=== PATIENT | male | born 1930 | race Caucasian/White ===

== ENCOUNTER 2017-04-21 03:00 | Emergency (ER) | payer MEDICARE ==
[2017-04-21 03:19] VITALS: RESP 18
--- NOTE | 2017-04-21 04:14 | CT ---
EXAM: CT Abdomen and Pelvis Without Intravenous Contrast CLINICAL HISTORY: Reason: scrotal swelling TECHNIQUE: Axial computed tomography images of the abdomen and pelvis without intravenous contrast. DLP is 790.60 mGy-cm. This CT exam was performed using one or more of the following dose reduction techniques: automated exposure control, adjustment of the mA and/or kV according to patient size, and/or use of iterative reconstruction technique. COMPARISON: No relevant prior studies available. FINDINGS: Liver, spleen, pancreas, and both adrenal glands are normal. Gallbladder contains a small amount of dense material which may represent gravel-like gallstones. Both kidneys appear normal without evidence of hydronephrosis or calculus. The urinary bladder is normal. There is a large left inguinal hernia extending to the left scrotum. The left inguinal hernia sac contains several loops of small bowel and a segment of the sigmoid colon. No evidence of bowel strangulation. IMPRESSION: 1. Large left inguinal hernia extending to the left scrotum which contains multiple loops of small bowel and a segment of the sigmoid colon. No evidence of bowel strangulation. 2. Cholelithiasis.
--- NOTE | 2017-04-21 04:37 | ED ---
General Adult HPI - General Chief complaint: Recheck/Abnormal Lab/Rx Stated complaint: Fall/Testicular Swelling Time Seen by Provider: 04/21/17 03:05 Source: patient, family, EMS Mode of arrival: EMS Limitations: no limitations - History of Present Illness Initial comments: This patient is an 86-year-old man brought to be evaluated by EMS. EMS had been called to the scene where patient had fallen and was not able to get back up. They found the patient lying on the ground stating that he had tripped on the curb and fallen. Patient was denying significant injury but was very weak and not able to stand without support. A did get him up he was able to go into his home. When he was inside the patient's requested that they try to help get him undressed so he could go to bed and it was observed that the patient's scrotum had marked amount of swelling. They bring the patient to have the scrotal swelling evaluated. The patient states that this is been going on probably for about a year. He is denying pain. He denies recent change in bowel movements or urination. The patient states that without the prompting from EMS he would not have come here to be evaluated for this tonight. Onset/Timin -: year(s) Location: genitals Radiation: non-radiation Quality: other (No pain) Consistency: constant Improves with: none Worsens with: none Associated Symptoms: denies other symptoms Treatments Prior to Arrival: none - Related Data Allergies Allergy/AdvReac Type Severity Reaction Status Date / Time No Known Allergies Allergy Verified 04/21/17 03:40 Review of Systems ROS Statement: Those systems with pertinent positive or pertinent negative responses have been documented in the HPI. ROS Other: All systems not noted in ROS Statement are negative. Constitutional: Denies: fever, chills Respiratory: Denies: cough, dyspnea Cardiovascular: Denies: chest pain, palpitations, syncope Gastrointestinal: Denies: abdominal pain, vomiting, diarrhea, constipation Genitourinary: Reports: as per HPI, other (Scrotal swelling). Denies: dysuria, hematuria Musculoskeletal: Denies: back pain Skin: Denies: rash Neurological: Denies: headache, weakness, numbness Past Medical History Additional Past Medical History / Comment(s): peptic ulcer History of Any Multi-Drug Resistant Organisms: None Reported Additional Past Surgical History / Comment(s): shoulder rotator cuff surgery Past Psychological History: No Psychological Hx Reported Smoking Status: Never smoker Past Alcohol Use History: None Reported Past Drug Use History: None Reported General Exam Limitations: no limitations General appearance: alert, in no apparent distress Head exam: Present: atraumatic, normocephalic Eye exam: Present: normal appearance. Absent: scleral icterus, conjunctival injection Neck exam: Present: normal inspection Respiratory exam: Present: normal lung sounds bilaterally. Absent: respiratory distress, wheezes, rales, rhonchi, stridor Cardiovascular Exam: Present: regular rate, normal rhythm, normal heart sounds. Absent: systolic murmur, diastolic murmur, rubs, gallop GI/Abdominal exam: Present: soft, normal bowel sounds, hernia (Patient has large inguinal hernia into the scrotum without tenderness.). Absent: distended , tenderness, guarding, rebound, rigid exam: Present: scrotal swelling Extremities exam: Present: normal inspection, normal capillary refill. Absent: pedal edema, calf tenderness Back exam: Absent: CVA tenderness (R), CVA tenderness (L) Neurological exam: Present: alert. Absent: motor sensory deficit Skin exam: Present: warm, dry, intact, normal color. Absent: rash Course Vital Signs 04/21/17 04/21/17 04/21/17 03:05 04:43 05:27 Temperature 97.2 F L 98.8 F Pulse Rate 130 H 122 H 83 Respiratory 18 18 18 Rate Blood Pressure 122/63 133/74 149/79 O2 Sat by Pulse 99 98 98 Oximetry Medical Decision Making - Medical Decision Making Patient is an 86-year-old man with a large inguinal hernia without tenderness or evidence of obstruction. Given that the patient is not having symptoms related to this he is stable for discharge area he is given the follow-up information for surgery but at this point states that he is not interested in having a surgery. Discussed signs and symptoms requiring immediate emergent reevaluation and also appropriate follow-up information. Disposition Clinical Impression: Hernia, Fall Disposition: HOME SELF-CARE Condition: Fair Instructions: Fall Prevention for Older Adults (ED), Inguinal Hernia (ED) Referrals: None,Stated [Primary Care Provider] - 1-2 days Torrey Jc DO [Doctor of Osteopathic Medicine] - 1-2 days
[2017-04-21 05:28] VITALS: BP 149/79; PULSE 83; TEMP 98.8
--- NOTE | 2017-04-22 06:02 | CDI ---
Documentation Clarification OP Dear Israel ARAYA MD Please do addendum to ED report for HPI , Physical exam and MDM. Thank you, Kami Uriarte Nursing Secretary If you have any question, Please contact coding compliance specialist at [phone] [facility]
== END 2017-04-21 05:27 | disposition home or self-care (01) ==
LOC: EC 03:00
DX: K40.90 Unilateral inguinal hernia, without obstruction or gangrene, not specified as recurrent (principal); W01.0XXA Fall on same level from slipping, tripping and stumbling without subsequent striking against object, initial encounter; Y92.009 Unspecified place in unspecified non-institutional (private) residence as the place of occurrence of the external cause
CPT/HCPCS: 74176; 99284

== ENCOUNTER 2018-08-08 21:43 | Inpatient (IN) | payer MEDICARE ==
[2018-08-08] MEDS ORDERED: SODIUM CHLORIDE 0.9% 1,000 ML IV ONE (22:15)
--- NOTE | 2018-08-08 22:24 | ED ---
General Adult HPI - General Chief complaint: Altered Mental Status Stated complaint: Altered Mental Status Time Seen by Provider: 08/08/18 21:45 Source: patient, family, EMS, RN notes reviewed Mode of arrival: EMS Limitations: altered mental status - History of Present Illness Initial comments: Chief complaint and history of present illness this is an 87-year-old male presents emergency room with a fever and change in mental status. He was with his ex- spends days with him today and she said he didn't eat which is not like him. He also had difficulty standing. The patient smells of urine. - Related Data Home Medications Medication Instructions Recorded Confirmed Acetaminophen Tab [Tylenol Tab] 650 mg PO Q6H PRN 08/08/18 08/08/18 Multivit-Min/FA/Lycopen/Lutein 1 tab PO DAILY 08/08/18 08/08/18 [Centrum Silver Tablet] Allergies Allergy/AdvReac Type Severity Reaction Status Date / Time No Known Allergies Allergy Verified 08/08/18 22:27 Review of Systems ROS Statement: Those systems with pertinent positive or pertinent negative responses have been documented in the HPI. Review of systems. The patient's heart appearing but he denies headache chest pain shortness breath GI/ or neuro deficits. While in bed he is able to move his extremities he does have shoulder problems after chronic is hard to move his left shoulder especially. His ex- who knows him well states that he just not himself. And he was unable to stand today though he did walk in the house earlier. She states she never fell. Past medical processing significant for duodenal ulcer, patient's had left rotator cuff surgery. Family history unknown. ALLERGIES none. ROS Other: All systems not noted in ROS Statement are negative. Past Medical History Additional Past Medical History / Comment(s): peptic ulcer History of Any Multi-Drug Resistant Organisms: None Reported Additional Past Surgical History / Comment(s): shoulder rotator cuff surgery Past Psychological History: No Psychological Hx Reported Smoking Status: Never smoker Past Alcohol Use History: None Reported Past Drug Use History: None Reported General Exam - General Exam Comments Initial Comments: General: The patient is awake and very hard of hearing. Assuming his a type posi tion which is ex- states is unusual for him. He is not complaining of any pain when asked specifically. She states she is not acting himself because he did not eat today. He stumbled and nearly fell. Vital signs show temperature 101.2 pulse 94 respiratory rate 20 pulse ox 90% room air blood pressure 147/77. Patient is very unkempt. Appears to have urinated on himself. Eye: Pupils are equal, round and reactive to light, extra-ocular movements are intact; there is normal conjunctiva bilaterally. No signs of icterus. Ears, nose, mouth and throat: Dry mucous membranes. Neck: The neck is supple, denies neck tenderness Cardiovascular: There is a regular rate and rhythm. No murmur, rub or gallop is appreciated. Respiratory: Decreased breath sounds on the left side. No crepitus or rales appreciated Gastrointestinal: Soft, non-distended, non-tender abdomen without masses or organomegaly noted. Evident from the patient's clothing that is lost a lot of weight. Current weight is reported to be 120 pounds Back: Denying back pain no bruises noted Musculoskeletal: Patient is curled up not complaining of pain. Reportedly had difficulty ambulating and standing per ex-.. Neurological: Patient moves upper or lower extremities but ex- states he wasn't able to stand on his own this afternoon Skin: Skin is warm and dry and no rashes or lesions are noted. Psychiatric: Suspect dementia type presentation Limitations: altered mental status Course Vital Signs 08/08/18 08/08/18 08/08/18 21:44 23:24 23:26 Temperature 101.2 F H 98.4 F Pulse Rate 94 99 Respiratory 20 18 Rate Blood Pressure 147/77 154/94 O2 Sat by Pulse 98 97 Oximetry EKG Findings - EKG Comments: EKG Findings:: EKG was done and reviewed at 2314 showing sinus rhythm first- degree AV block no acute ST elevation. Appears to be a 60 cycle interference or muscle tremors. Ventricular rate 94 RI interval is 236 QRS is 100 QT is [address] De Los Santos Medical Decision Making - Medical Decision Making Medical decision making; was 87-year-old male who was brought in by ambulance because his ex- stated he wasn't behaving and acting in normal fashion. Patient presents with a fever. He received Tylenol in the ER. IV fluids. Labs drawn. Chest x-ray pending. Patient's mother CAT scan of the brain. Patient has no ALLERGIES she'll be started on antibiotics post blood cultures were drawn Patient's chest x-ray is done AP and lateral view and compared to a previous chest x-ray. The radiologist's impression is no acute cardiopulmonary abnormality identified as read by Dr. Yi The patient's CT of the brain was done reviewed radiologist and the radiologist's final impression is #1 no intracranial hemorrhage or other acute intracranial abnormality. Number to global parenchymal volume loss with chronic microvascular ischemic changes. As read by Dr. Yi Labs show white count of 18,000 hemoglobin 14 hematocrit 43. Urine shows 4 reds 1 white no signs of Dr. De Los Santos Much of the history on this patient was obtained from his ex . 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 The patient will receive IV Rocephin and Levaquin. His vital signs remained stable. I felt it this time is unable to do ascertain how long the patient may have been confused and is much his history was relayed to us by his ex-. - Lab Data Result diagrams: 08/08/18 22:46 Lab Results 08/08/18 08/08/18 08/08/18 Range/Units 22:46 22:46 22:46 WBC 18.6 H (3.8-10.6) k/uL RBC 4.97 (4.30-5.90) m/uL Hgb 14.1 (13.0-17.5) gm/dL Hct 43.6 (39.0-53.0) % MCV 87.7 (80.0-100.0) fL MCH 28.3 (25.0-35.0) pg MCHC 32.2 (31.0-37.0) g/dL RDW 13.8 (11.5-15.5) % Plt Count 255 (150-450) k/uL Neutrophils % 92 % Lymphocytes % 3 % Monocytes % 4 % Eosinophils % 0 % Basophils % 0 % Neutrophils # 17.0 H (1.3-7.7) k/uL Lymphocytes # 0.6 L (1.0-4.8) k/uL Monocytes # 0.8 (0-1.0) k/uL Eosinophils # 0.0 (0-0.7) k/uL Basophils # 0.0 (0-0.2) k/uL PT 10.7 (9.0-12.0) sec INR 1.0 (<1.2) APTT 22.7 (22.0-30.0) sec Plasma Lactic Acid Ham 1.7 (0.7-2.0) mmol/L Urine Color Urine Appearance (Clear) Urine pH (5.0-8.0) Ur Specific [place] (1.001-1.035) Urine Protein (Negative) Urine Glucose (UA) (Negative) Urine Ketones (Negative) Urine Blood (Negative) Urine Nitrite (Negative) Urine Bilirubin (Negative) Urine Urobilinogen (<2.0) mg/dL Ur Leukocyte Esterase (Negative) Urine RBC (0-5) /hpf Urine WBC (0-5) /hpf Ur Squamous Epith Cells (0-4) /hpf Hyaline Casts (0-2) /lpf Urine Mucus (None) /hpf 08/08/18 Range/Units 22:46 WBC (3.8-10.6) k/uL RBC (4.30-5.90) m/uL Hgb (13.0-17.5) gm/dL Hct (39.0-53.0) % MCV (80.0-100.0) fL MCH (25.0-35.0) pg MCHC (31.0-37.0) g/dL RDW (11.5-15.5) % Plt Count (150-450) k/uL Neutrophils % % Lymphocytes % % Monocytes % % Eosinophils % % Basophils % % Neutrophils # (1.3-7.7) k/uL Lymphocytes # (1.0-4.8) k/uL Monocytes # (0-1.0) k/uL Eosinophils # (0-0.7) k/uL Basophils # (0-0.2) k/uL PT (9.0-12.0) sec INR (<1.2) APTT (22.0-30.0) sec Plasma Lactic Acid Ham (0.7-2.0) mmol/L Urine Color Yellow Urine Appearance Clear (Clear) Urine pH 7.5 (5.0-8.0) Ur Specific [place] 1.018 (1.001-1.035) Urine Protein Trace H (Negative) Urine Glucose (UA) Negative (Negative) Urine Ketones Negative (Negative) Urine Blood Small H (Negative) Urine Nitrite Negative (Negative) Urine Bilirubin Negative (Negative) Urine Urobilinogen <2.0 (<2.0) mg/dL Ur Leukocyte Esterase Negative (Negative) Urine RBC 4 (0-5) /hpf Urine WBC 1 (0-5) /hpf Ur Squamous Epith Cells <1 (0-4) /hpf Hyaline Casts 1 (0-2) /lpf Urine Mucus Rare H (None) /hpf Disposition Clinical Impression: Fever and chills, Dementia Disposition: ADMITTED IP TO THIS [facility] Condition: Serious Is patient prescribed a controlled substance at d/c from ED?: No Referrals: None,Stated [Primary Care Provider] - 1-2 days
[2018-08-08] MEDS ORDERED: ACETAMINOPHEN TAB 500 MG TAB PO STA (22:25)
[2018-08-08] MEDS ORDERED: LEVOFLOXACIN 500MG-D5W PMX 500 MG in DEXTROSE/WATER 1 100ML.BAG IVPB STA (22:32)
--- NOTE | 2018-08-08 22:42 | CT ---
EXAM: CT Head Without Intravenous Contrast CLINICAL HISTORY: ITS.REASON CT Reason: Altered mental status, poor balance TECHNIQUE: Axial computed tomography images of the head/brain without intravenous contrast. CTDI is 51.7 mGy and DLP is 1256 mGy-cm. This CT exam was performed using one or more of the following dose reduction techniques: automated exposure control, adjustment of the mA and/or kV according to patient size, and/or use of iterative reconstruction technique. COMPARISON: None FINDINGS: Brain: Global parenchymal volume loss with chronic microvascular ischemic changes. No hemorrhage. Ventricles: Unremarkable. No ventriculomegaly. Bones/joints: Unremarkable. No acute fracture. Soft tissues: Unremarkable. Sinuses: Unremarkable as visualized. No acute sinusitis. Mastoid air cells: Unremarkable as visualized. No mastoid effusion. IMPRESSION: 1. No intracranial hemorrhage or other acute intracranial abnormality. 2. Global parenchymal volume loss with chronic microvascular ischemic changes.
--- NOTE | 2018-08-08 22:45 | XR ---
EXAM: XR Chest, 2 Views CLINICAL HISTORY: ITS.REASON XR Reason: altered mental status TECHNIQUE: Frontal and lateral views of the chest. COMPARISON: None. FINDINGS: Lungs: Hyperinflated lungs with flattened hemidiaphragms could be seen with chronic obstructive pulmonary disease. Pleural space: Unremarkable. No pneumothorax. Heart: Unremarkable. No cardiomegaly. Mediastinum: Unremarkable. Bones/joints: Osteolysis versus postsurgical change of the distal clavicles. Degenerative changes seen in the spine. Vasculature: Atherosclerotic calcification of the thoracic aorta. Other findings: The patient is rotated which degrades examination. IMPRESSION: No acute cardiopulmonary abnormality identified.
[2018-08-08 23:28] LABS: Appearance,Urine Clear (Clear); Bilirubin,Urine Negative (Negative); Blood,Urine Small (Negative); Color,Urine Yellow; Glucose,Urine (UA) Negative (Negative); Hyaline Casts,Urine 1 /lpf (0-2); Ketones,Urine Negative (Negative); Leukocyte Esterase,Urine Negative (Negative); Mucus,Urine Rare /hpf; Nitrite,Urine Negative (Negative); PH, Urine 7.5 (5.0-8.0); Protein,Urine Trace (Negative); RBC,Urine 4 /hpf (0-5); Specific Gravity,Urine 1.018 (1.001-1.035); Squamous Epithelial Cell,Urine <1 /hpf (0-4); Urobilinogen,Urine <2.0 mg/dL (<2.0); WBC,Urine 1 /hpf (0-5)
[2018-08-08 23:56] LABS: Basophils % (A) 0 %; Eosinophils % (A) 0 %; HCT 43.6 % (39.0-53.0); HGB 14.1 gm/dL (13.0-17.5); Lymphocytes # (A) 0.6 k/uL (1.0-4.8); Lymphocytes % (A) 3 %; MCH 28.3 pg (25.0-35.0); MCHC 32.2 g/dL (31.0-37.0); MCV 87.7 fL (80.0-100.0); Mean Platelet Volume 7.9; Monocytes # (A) 0.8 k/uL (0-1.0); Monocytes % (A) 4 %; Neutrophils % (A) 92 %; Platelet Count 255 k/uL (150-450); RBC 4.97 m/uL (4.30-5.90); RDW 13.8 % (11.5-15.5); WBC 18.6 k/uL (3.8-10.6)
[2018-08-09 00:06] LABS: Albumin 3.9 g/dL (3.5-5.0); Potassium 4.3 mmol/L (3.5-5.1); Total Bilirubin 1.1 mg/dL (0.2-1.3); Total Protein 7.2 g/dL (6.3-8.2)
[2018-08-09 00:11] LABS: Partial Thromboplastin Time 22.7 sec (22.0-30.0); Prothrombin Time 10.7 sec (9.0-12.0)
[2018-08-09] MEDS ORDERED: ACETAMINOPHEN TAB 325 MG TAB PO PRN (00:33)
[2018-08-09] MEDS ORDERED: NALOXONE 0.4 MG/ML 1 ML VIAL IV PRN (00:33)
[2018-08-09] MEDS: SODIUM CHLORIDE 0.9% 1,000 ML IV SCH ×2 (01:08→18:47)
[2018-08-09 06:14] LABS: Glucose,Whole Blood 100 mg/dL (75-99)
[2018-08-09] MEDS ORDERED: LEVOFLOXACIN 500MG-D5W PMX 500 MG in DEXTROSE/WATER 1 100ML.BAG IVPB SCH (09:00)
[2018-08-09] MEDS: FAMOTIDINE 20 MG TAB PO SCH ×2 (09:42→20:10)
--- NOTE | 2018-08-09 10:33 | P.CRDCN ---
History of Present Illness History of present illness: This is a pleasant 87-year-old male with no significant past medical history. He presented to the hospital after altered mental status and a fall yesterday witnessed by his friend who is at the bedside. She states he came over earlier in the day yesterday and she made him some food. He usually eats readily but yesterday he didn't seem to have much of an appetite and was not acting like himself. He walked across her living room bracing himself against furniture and ruelas which is not normal for him he attempted to sit down in the chair but slid rate down to the ground. There is no loss of consciousness, he did not hit his head and he had no symptoms of dizziness, shortness of breath, palpitations or chest discomfort prior to falling per the patient and his friend. He is seen and examined resting comfortably in bed in no acute distress. He does not follow regularly with the physician and never has. He does not seem to have a grasp on what exactly is going on or why he is at the hospital. The friend states this is abnormal for him although over the previous 8-9 years she has noticed his memory slipping at times. She denies that he has any dementia and has never been diagnosed as such but also note he does not see a physician. Upon arrival to the emergency department he was febrile 101.2F. He has been started on IV antibiotics. EKG reveals sinus mechanism with first-degree AV block and poor R-wave progression. Chest x-ray is negative for an acute cardiopulmonary process. CT of the brain is negative for an acute intracranial process. Chronic small vessel ischemia. Laboratory data reviewed, WBC 18.6, hemoglobin 14.1, platelets 255, sodium 140, potassium 4.3, creatinine 1.35, GFR 46, CK and admission 1057 with a troponin of 0.221, second troponin 0.333. At the time of my exam: CONSTITUTIONAL: Denies fever. Denies chills. EYES: Denies blurred vision. Denies vision changes. Denies eye pain. EARS, NOSE, MOUTH & THROAT: Denies headache. Denies sore throat. Denies ear pain. CARDIOVASCULAR: Denies chest pain. Denies shortness of breath. Denies orthopnea. Denies PND. Denies palpitations. RESPIRATORY: Denies cough. GASTROINTESTINAL: Denies abdominal pain. Denies diarrhea. Denies constipation. Denies nausea. Denies vomiting. MUSCULOSKELETAL: Denies myalgias. INTEGUMENTARY: Denies pruitis. Denies rash. NEUROLOGIC: Denies numbness. Denies tingling. Denies weakness. PSYCHIATRIC: Denies anxiety. Denies depression. ENDOCRINE: Denies fatigue. Denies weight change. Denies polydipsia. Denies polyurina. GENITOURINARY: Denies burning, hematuria or urgency with micturation. HEMATOLOGIC: Denies history of anemia. Denies bleeding. Blood pressure 138/76 heart rate 93 afebrile maintaining oxygen saturation on room air GENERAL: This is a 87-year-old male in no apparent distress at the time of my examination. Disheveled appearance. HEENT: Head is atraumatic, normocephalic. Pupils are equal, round. Sclerae anicteric. Conjunctivae are clear. Mucous membranes of the mouth are moist. Neck is supple. There is no jugular venous distention. No carotid bruit is heard. LUNGS: Clear to auscultation no wheezes, rales or rhonchi. No chest wall tenderness is noted on palpation or with deep breathing. HEART: Regular rate and rhythm without murmurs, rubs or gallops. S1 and S2 heard. ABDOMEN: Soft, nontender. Bowel sounds are heard. No organomegaly noted. EXTREMITIES: No evidence of peripheral edema and no calf tenderness noted. VASCULAR: Radial and dorsalis pedis pulses palpated, no evidence of clubbing. NEUROLOGIC: Patient is awake, alert and oriented to self. ASSESSMENT Urinary tract infection Leukocytosis Febrile illness Kidney disease unknown if chronic or acute ST patient has never been here to this hospital does not see a physician regularly. Mild troponin elevation of unclear etiology. Most likely related to acute i nfectious process as well as component of renal failure. Does not represent an acute coronary event as he has no symptoms of angina and there is no EKG evidence to suggest an acute coronary syndrome. PLAN Obtain 2-D echocardiogram and Doppler study to assess cardiac structure and function. Continue to trend cardiac enzymes. Obtain lipid profile. Further recommendations to follow based upon clinical course. Thank you kindly for this consultation. Nurse Practitioner note has been reviewed, I agree with a documented findings and plan of care. Patient was seen and examined. Past Medical History Past Medical History: Hearing Disorder / Deafness Additional Past Medical History / Comment(s): hernia, peptic ulcer History of Any Multi-Drug Resistant Organisms: None Reported Additional Past Surgical History / Comment(s): shoulder rotator cuff surgery Past Psychological History: No Psychological Hx Reported Smoking Status: Never smoker Past Alcohol Use History: None Reported Past Drug Use History: None Reported - Past Family History Father Family Medical History: Unable to Obtain Mother Family Medical History: Unable to Obtain Medications and Allergies Home Medications Medication Instructions Recorded Confirmed Type Acetaminophen Tab [Tylenol Tab] 650 mg PO Q6H PRN 08/08/18 08/08/18 History Multivit-Min/FA/Lycopen/Lutein 1 tab PO DAILY 08/08/18 08/08/18 History [Centrum Silver Tablet] Allergies Allergy/AdvReac Type Severity Reaction Status Date / Time No Known Allergies Allergy Verified 08/08/18 22:27 Physical Exam Vitals: Vital Signs Temp Pulse Pulse Resp BP BP Pulse Ox 08/09/18 03:55 99.4 F 93 18 138/76 97 08/09/18 03:40 93 18 08/09/18 03:11 100 F H 85 16 123/67 08/09/18 01:49 15 08/09/18 01:12 86 16 123/67 96 08/08/18 23:26 98.4 F 08/08/18 23:24 99 18 154/94 97 08/08/18 21:44 101.2 F H 94 20 147/77 98 Intake and Output 08/08/18 08/09/18 08/09/18 22:59 06:59 14:59 Intake Total 400 Balance 400 Intake: Intake, IV Titration 400 Amount Levofloxacin 250Mg-D5w 50 Pmx 250 mg In Dextrose/ Water 1 50ml.bag @ 50 mls /hr IVPB Q24H [facility] Rx#: [id number] Sodium Chloride 0.9% 1, 300 000 ml @ 100 mls/hr IV . Q10H [facility] Rx#:[id number] cefTRIAXone 2 gm In 50 Sodium Chloride 0.9% 50 ml @ 100 mls/hr IVPB ONCE [facility] Rx#:[id number] Other: Voiding Method Incontinent # Voids 1 Weight 54.658 kg 62 kg Results 08/08/18 22:46 08/08/18 22:46 Cardiac Enzymes 08/08/18 08/08/18 08/09/18 Range/Units 22:46 22:46 05:37 AST 46 (17-59) U/L Troponin I 0.221 H* 0.333 H* (0.000-0.034) ng/mL Coagulation 08/08/18 Range/Units 22:46 PT 10.7 (9.0-12.0) sec APTT 22.7 (22.0-30.0) sec CBC 08/08/18 Range/Units 22:46 WBC 18.6 H (3.8-10.6) k/uL RBC 4.97 (4.30-5.90) m/uL Hgb 14.1 (13.0-17.5) gm/dL Hct 43.6 (39.0-53.0) % Plt Count 255 (150-450) k/uL Comprehensive Metabolic Panel 08/08/18 Range/Units 22:46 Sodium 140 (137-145) mmol/L Potassium 4.3 (3.5-5.1) mmol/L Chloride 106 (98-107) mmol/L Carbon Dioxide 23 (22-30) mmol/L BUN 30 H (9-20) mg/dL Creatinine 1.35 H (0.66-1.25) mg/dL Glucose 109 H (74-99) mg/dL Calcium 10.0 (8.4-10.2) mg/dL AST 46 (17-59) U/L ALT 21 (21-72) U/L Alkaline Phosphatase 74 (38-126) U/L Total Protein 7.2 (6.3-8.2) g/dL Albumin 3.9 (3.5-5.0) g/dL Current Medications Generic Name Dose Route Start Last Admin Trade Name Freq PRN Reason Stop Dose Admin Acetaminophen 650 mg 08/09/18 00:33 Tylenol Tab PO Q6HR PRN Mild Pain or Fever > 100.5 Famotidine 20 mg 08/09/18 09:00 08/09/18 09:42 Pepcid PO 20 mg BID [facility] Administration Sodium Chloride 1,000 mls @ 100 mls/hr 08/09/18 00:45 08/09/18 01:08 Saline 0.9% IV 100 mls/hr .Q10H [facility] Administration Levofloxacin/Dextrose 250 mg/ 50 mls @ 50 mls/hr 08/09/18 21:00 IV Solution IVPB Q24H [facility] Naloxone HCl 0.2 mg 08/09/18 00:33 Narcan IV Q2M PRN Opioid Reversal Intake and Output 08/08/18 08/09/18 08/09/18 22:59 06:59 14:59 Intake Total 400 Balance 400 Intake: Intake, IV Titration 400 Amount Levofloxacin 250Mg-D5w 50 Pmx 250 mg In Dextrose/ Water 1 50ml.bag @ 50 mls /hr IVPB Q24H [facility] Rx#: [id number] Sodium Chloride 0.9% 1, 300 000 ml @ 100 mls/hr IV . Q10H [facility] Rx#:[id number] cefTRIAXone 2 gm In 50 Sodium Chloride 0.9% 50 ml @ 100 mls/hr IVPB ONCE [facility] Rx#:[id number] Other: Voiding Method Incontinent # Voids 1 Weight 54.658 kg 62 kg 08/08/18 22:46 08/08/18 22:46
[2018-08-09 11:37] LABS: Cholesterol 119 mg/dL (<200); HDL Cholesterol 46 mg/dL (40-60); LDL Cholesterol,Calculated 61 mg/dL (0-99); Triglycerides 59 mg/dL (<150)
--- NOTE | 2018-08-09 16:19 | HP ---
HISTORY AND PHYSICAL CHIEF COMPLAINT: Fever and mental status changes. HISTORY OF PRESENT ILLNESS: This is the first known admission for this 87-year-old, disheveled, white male. He was brought in by his . He has been apparently running a fever and is confused. History is taken from the who is a poor historian and quite erratic and she thinks most of her 's problems are due to "witchcraft." In the emergency room, he appeared to be disheveled and he did have a fever. Vital signs are unremarkable. REVIEW OF SYSTEMS: Not obtainable. Past medical history, family history and personal and social histories are similarly unobtainable. Past medical history, family history, and personal and social history suggests he does not have any allergies and he may only be on a vitamin and Tylenol. [place] [address]. His BUN was 30 and creatinine 1.5. He had elevated troponin, but this was not felt likely to represent cardiac disease. Lactic acid is 1.7. Urine was unremarkable. PHYSICAL EXAM: Temperature is 101.2 with a pulse 94, respirations of 20 and blood pressure 147/77. In general he appeared to be disheveled and confused. Skin was dry. Skin color is normal. Head, ears, eyes, nose, mouth, and throat were grossly normal as well as can be examined. There were no carotid bruits. Neck veins not distended. The chest sounded clear and cardiac exam sounded like normal sinus rhythm and no murmurs or extra sounds. Abdomen is flat, soft, but no masses or visceromegaly. Extremities are unremarkable except for several areas of pressure damage. One was on the right lateral lower leg near the ankle. He has a sacral decubitus and two stage I decubiti over the scapular areas. Neurologically, seemed to be intact, but he was confused. IMPRESSION: 1. Mental status changes. 2. Dementia. 3. Fever of unknown origin. 4. Dehydration. 5. Malnutrition. 6. 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 7. Multiple areas of pressure changes in the skin. PLAN: 1. Bed rest. 2. IV fluids. 3. Cultures. 4. Infectious Disease consult. 5. Discharge planning. MMODL / IJN: [id number] /
[2018-08-09] MEDS ORDERED: VANCOMYCIN IV PER PHARMACY 1 EACH MISC MISCELLANE PRN (16:37)
[2018-08-09] MEDS: VANCOMYCIN 1,250 MG in SODIUM CHLORIDE 0.9% 250 ML IVPB SCH (18:47)
[2018-08-09] MEDS ORDERED: LEVOFLOXACIN 250MG-D5W PMX 250 MG in DEXTROSE/WATER 1 50ML.BAG IVPB SCH (21:00)
--- NOTE | 2018-08-09 22:39 | CONS ---
CONSULTATION DATE OF SERVICE: 08/09/2018. REASON FOR CONSULTATION: Bacteremia and fever. HISTORY OF PRESENT ILLNESS: The patient is an 87-year-old male who was brought into the ER at [facility] yesterday evening for mental status changes and fever. Apparently the ex- who provided most of the history, did mention that she brought the patient to his house and she did cook for dinner. However, the patient would not eat which is kind of not usual for him. The patient did not act normally. He felt lightly warm though but there was no clear history of any headache. No nausea, no vomiting, any abdominal pain or any diarrhea. The patient was brought in to the ER as the patient did fell off the chair he was sitting on without hitting his head. On arrival to the ER, the ER physician mentioned the patient smelled of urine. The patient did have a chest x-ray on presentation, which showed no acute cardiopulmonary abnormality identified. The patient did have a CT of the brain that was negative for any bleed. The patient on presentation to the hospital did have a fever of 101.2 degrees Fahrenheit and the patient did have slight tachycardia with a heart rate of 93. White count was elevated at 18.6. The patient UA was negative. The patient was started on Rocephin and Zithromax for presumed pneumonia. Blood cultures came back positive with gram-positive cocci that prompted this Infectious Disease consultation. Patient at this point knows that he is in the hospital. The patient denies having any headache to me. No nausea or vomiting has been reported. He did have very minimal cough, but not bringing up any sputum. No chest pain. No nausea, no vomiting. No abdominal pain. No diarrhea. The patient did have a chronic ulcer to the right leg not sure for how long the patient has, as the patient has been continuously scratching it but no significant pain, swelling or redness at that site. REVIEW OF SYSTEMS: CONSTITUTIONAL: Positive for weakness along with the fever. EYES: No complaint. ENT no complaint. RESPIRATORY as per HPI. CARDIOVASCULAR: No complaint. GENITOURINARY no complaint. Gastrointestinal: No complaint. MUSCULOSKELETAL: No complaint. INTEGUMENTARY: As per HPI. PSYCHOLOGICAL: No complaint. ENDOCRINE: No complaint. NEUROLOGIC: No complaint. PAST MEDICAL HISTORY: Peptic ulcer disease. PAST SURGICAL HISTORY: Rotator cuff surgery. SOCIAL HISTORY: No history of smoking, drinking, or drug use. FAMILY HISTORY: No pertinent findings noticed. ALLERGIES: No known drug allergies. MEDICATION: Medications include the patient is on Rocephin 2 g and Levaquin. The patient is on Narcan, Pepcid, Tylenol. PHYSICAL EXAMINATION: Blood pressure is 152/79 with a pulse of 81, temperature 98.3. He is 100% on room air. General description is an elderly male lying in bed in no distress. No tachypnea or accessory muscles for respiration use. HEENT: Shows no pallor or scleral icterus. Oral mucosal membranes are dry. No pharyngeal erythema or thrush. Neck: Trachea central. No thyromegaly. Lungs unlabored breathing, decreased breath sounds at the bases. No wheeze or crackles. Heart S1, S2. Regular rate and rhythm. ABDOMEN: Soft. No tenderness. No guarding. No rigidity. Extremities are no edema of the feet. Examination of the right lateral leg area did have a small superficial ulceration which is more over growth with no slough tissue. No surrounding erythema. No foul smelling drainage. Neurological: The patient is awake, alert, oriented times two. No signs of meningeal irritation. Mood and affect normal. LABS: Hemoglobin is 14.1, white count of 18.6, BUN of 30, creatinine 1.35. Electrolytes have been normal. Liver enzymes are normal. Troponin was elevated. UA has been negative. Initial CT report negative. DIAGNOSTIC IMPRESSION AND PLAN: Patient admitted to the hospital with sepsis in this patient who did have a fever of 101 degrees Fahrenheit. The patient was tachycardic, heart rate of 93. Did have elevated white count 18,000, source likely sepsis now with evidence of gram-positive bacteremia. Source could be more likely pneumonia. Did not show on initial x-ray more likely with a component of dehydration on top of it as the patient currently no other clinical focus for this gram-positive bacteremia or infection. His abdomen was soft on clinical examination. Urine has been negative. He did have a wound on his right lateral leg however no significant cellulitis was noticed. PLAN: 1. Repeat blood cultures to document clearance of bacteremia. 2. Vancomycin pharmacy to dose with target trough of 15 while watching his kidney function and vanco trough closely. 3. Request for dressing to the right lateral leg wound needs to be changed every 48 hours. 4. Repeat chest x-ray PA and lateral tomorrow. 5. We will follow up on clinical condition and culture to further adjust medication if needed. Thank you for this consultation. Will follow this patient along with you. MMODL / IJN: [id number] /
[2018-08-10] MEDS: SODIUM CHLORIDE 0.9% 1,000 ML IV SCH ×3 (01:00→17:23)
[2018-08-10 06:58] LABS: Basophils % (A) 0 %; Eosinophils # (A) 0.1 k/uL (0-0.7); Eosinophils % (A) 1 %; HGB 14.4 gm/dL (13.0-17.5); Hypochromasia Slight; Lymphocytes # (A) 1.3 k/uL (1.0-4.8); Lymphocytes % (A) 8 %; MCHC 31.3 g/dL (31.0-37.0); MCV 92.5 fL (80.0-100.0); Mean Platelet Volume 8.3; Monocytes # (A) 0.7 k/uL (0-1.0); Monocytes % (A) 4 %; Neutrophils % (A) 86 %; Platelet Count 197 k/uL (150-450); RBC 4.97 m/uL (4.30-5.90); RDW 14.4 % (11.5-15.5); WBC 16.3 k/uL (3.8-10.6)
[2018-08-10] MEDS: FAMOTIDINE 20 MG TAB PO SCH (09:19)
[2018-08-10 10:16] LABS: Potassium 4.1 mmol/L (3.5-5.1)
--- NOTE | 2018-08-10 11:02 | P.GSCN ---
History of Present Illness Consult date: 08/10/18 History of present illness: This is an 87-year-old gentleman who was brought to the hospital because of change in mental status. He is found to have a fever of unknown origin. He is admitted the hospital for further evaluation and treatment. Dr. Chance asked our office to see the patient for a left-sided hydrocele. The patient's history is limited. It is taken primarily from his partner. She states that his mental status is improved but he is still somewhat somnolent. She states that he has had this "hydrocele" for some time. It is actually a left inguinal hernia based on examination and computed tomography scan done a couple years ago. She states that he is asymptomatic. It does not hurt him. He has no problems with his bowels. Review of Systems ROS unobtainable: due to mental status Past Medical History Past Medical History: Hearing Disorder / Deafness Additional Past Medical History / Comment(s): hernia, peptic ulcer History of Any Multi-Drug Resistant Organisms: None Reported Additional Past Surgical History / Comment(s): shoulder rotator cuff surgery Past Psychological History: No Psychological Hx Reported Smoking Status: Never smoker Past Alcohol Use History: None Reported Past Drug Use History: None Reported - Past Family History Father Family Medical History: Unable to Obtain Mother Family Medical History: Unable to Obtain Medications and Allergies Home Medications Medication Instructions Recorded Confirmed Type Acetaminophen Tab [Tylenol Tab] 650 mg PO Q6H PRN 08/08/18 08/08/18 History Multivit-Min/FA/Lycopen/Lutein 1 tab PO DAILY 08/08/18 08/08/18 History [Centrum Silver Tablet] Allergies Allergy/AdvReac Type Severity Reaction Status Date / Time No Known Allergies Allergy Verified 08/08/18 22:27 Surgical - Exam Vital Signs Temp Pulse Resp BP Pulse Ox 101.2 F H 94 20 147/77 98 08/08/18 21:44 08/08/18 21:44 08/08/18 21:44 08/08/18 21:44 08/08/18 21:44 - General no distress, cachectic - Eyes PERRL - ENT decreased hearing - Neck trachea midline - Respiratory normal expansion, normal respiratory effort - Cardiovascular Rhythm: regular - Abdomen There is a large left inguinal hernia into the scrotum. Abdomen: soft, non tender Hernia: inguinal - Genitourinary Cannot palpate the left testicle the right is normal - Neurologic memory loss Results - Labs 08/10/18 06:11 08/10/18 09:41 Abnormal Lab Results - Last 24 Hours (Table) 08/09/18 08/10/18 08/10/18 Range/Units 10:53 06:11 09:41 WBC 16.3 H (3.8-10.6) k/uL Neutrophils # 14.0 H (1.3-7.7) k/uL Chloride 111 H (98-107) mmol/L Carbon Dioxide 21 L (22-30) mmol/L BUN 23 H (9-20) mg/dL Glucose 139 H (74-99) mg/dL Troponin I 0.291 H* (0.000-0.034) ng/mL Microbiology - Last 24 Hours (Table) 08/08/18 22:46 Blood Culture Gram Stain - Preliminary Blood Blood Culture - Preliminary Beta Hemolytic Strep Group G 08/08/18 22:46 Blood Culture - Final Blood 08/08/18 22:46 Urine Culture - Preliminary Urine,Catheterized Diabetes panel 08/09/18 08/10/18 Range/Units 10:53 09:41 Sodium 138 (137-145) mmol/L Potassium 4.1 (3.5-5.1) mmol/L Chloride 111 H (98-107) mmol/L Carbon Dioxide 21 L (22-30) mmol/L BUN 23 H (9-20) mg/dL Creatinine 1.07 (0.66-1.25) mg/dL Glucose 139 H (74-99) mg/dL Calcium 9.0 (8.4-10.2) mg/dL Triglycerides 59 (<150) mg/dL HDL Cholesterol 46 (40-60) mg/dL Calcium panel 08/10/18 Range/Units 09:41 Calcium 9.0 (8.4-10.2) mg/dL Pituitary panel 08/10/18 Range/Units 09:41 Sodium 138 (137-145) mmol/L Potassium 4.1 (3.5-5.1) mmol/L Chloride 111 H (98-107) mmol/L Carbon Dioxide 21 L (22-30) mmol/L BUN 23 H (9-20) mg/dL Creatinine 1.07 (0.66-1.25) mg/dL Glucose 139 H (74-99) mg/dL Calcium 9.0 (8.4-10.2) mg/dL Adrenal panel 08/10/18 Range/Units 09:41 Sodium 138 (137-145) mmol/L Potassium 4.1 (3.5-5.1) mmol/L Chloride 111 H (98-107) mmol/L Carbon Dioxide 21 L (22-30) mmol/L BUN 23 H (9-20) mg/dL Creatinine 1.07 (0.66-1.25) mg/dL Glucose 139 H (74-99) mg/dL Calcium 9.0 (8.4-10.2) mg/dL - Imaging CT scan - abdomen: report reviewed, image reviewed CT scan - pelvis: report reviewed, image reviewed Assessment and Plan Assessment: Impression: Large left inguinal hernia extending into the scrotum. Recommendations: And lysis patient is symptomatic I do not recommend further evaluation and/or treatment of this. He does not seem to have symptoms with regards to pain or bowel issues. However this be general surgical evaluation.
--- NOTE | 2018-08-10 11:38 | P.PN ---
Subjective Progress Note Date: 08/10/18 This is a pleasant 87-year-old male with no significant past medical history. He presented to the hospital after altered mental status and a fall yesterday witnessed by his friend who is at the bedside. She states he came over earlier in the day yesterday and she made him some food. He usually eats readily but yesterday he didn't seem to have much of an appetite and was not acting like himself. He walked across her living room bracing himself against furniture and ruelas which is not normal for him he attempted to sit down in the chair but slid rate down to the ground. There is no loss of consciousness, he did not hit his head and he had no symptoms of dizziness, shortness of breath, palpitations or chest discomfort prior to falling per the patient and his friend. He is seen and examined resting comfortably in bed in no acute distress. He does not follow regularly with the physician and never has. He does not seem to have a grasp on what exactly is going on or why he is at the hospital. The friend states this is abnormal for him although over the previous 8-9 years she has noticed his memory slipping at times. She denies that he has any dementia and has never been diagnosed as such but also note he does not see a physician. Upon arrival to the emergency department he was febrile 101.2F. He has been started on IV antibiotics. 08/10/2018 Patient was seen and examined this morning, seems mildly confused, his ex- is at bedside who also seems mildly confused. His echo remains pending, troponins were 0.2, 0.3, 0.2.once we review his echocardiogram with Doppler study, if normal, we will follow along on an as-needed basis only. He is afebrile this morning.blood pressure 122/60 with a heart rate in the 80s, 96% on room air. White blood cell count 16.3, hemoglobin 14.4, platelet count 197. Sodium 138, potassium 4.1, BUN 23 and creatinine 1.0. Objective - Vital Signs Vital signs: Vital Signs Temp 97.7 F 08/10/18 10:07 Pulse 80 08/10/18 10:08 Resp 18 08/10/18 10:08 BP 149/76 08/10/18 10:07 Pulse Ox 98 08/10/18 10:07 Intake & Output 08/09/18 08/10/18 08/10/18 18:59 06:59 18:59 Intake Total 1520 600 Output Total 625 Balance 1520 -625 600 Weight 62 kg 60 kg Intake: Intake, IV Titration 800 Amount Sodium Chloride 0.9% 1, 800 000 ml @ 100 mls/hr IV . Q10H [facility] Rx#:[id number] Oral 720 600 Output: Urine 625 Other: Voiding Method Incontinent Incontinent Toilet Bedside Commode Bedpan Incontinent # Voids 2 1 0 # Bowel Movements 2 3 0 - Exam GENERAL: This is a 87-year-old male in no apparent distress at the time of my examination. Disheveled appearance. HEENT: Head is atraumatic, normocephalic. Pupils are equal, round. Sclerae anicteric. Conjunctivae are clear. Mucous membranes of the mouth are moist. Neck is supple. There is no jugular venous distention. No carotid bruit is heard. LUNGS: Clear to auscultation no wheezes, rales or rhonchi. No chest wall tenderness is noted on palpation or with deep breathing. HEART: Regular rate and rhythm without murmurs, rubs or gallops. S1 and S2 heard. ABDOMEN: Soft, nontender. Bowel sounds are heard. No organomegaly noted. EXTREMITIES: No evidence of peripheral edema and no calf tenderness noted. VASCULAR: Radial and dorsalis pedis pulses palpated, no evidence of clubbing. NEUROLOGIC: Patient is awake, alert and oriented to self. - Labs CBC & Chem 7: 08/10/18 06:11 08/10/18 09:41 Labs: Abnormal Lab Results - Last 24 Hours (Table) 08/09/18 08/10/18 08/10/18 Range/Units 10:53 06:11 09:41 WBC 16.3 H (3.8-10.6) k/uL Neutrophils # 14.0 H (1.3-7.7) k/uL Chloride 111 H (98-107) mmol/L Carbon Dioxide 21 L (22-30) mmol/L BUN 23 H (9-20) mg/dL Glucose 139 H (74-99) mg/dL Troponin I 0.291 H* (0.000-0.034) ng/mL Microbiology - Last 24 Hours (Table) 08/08/18 22:46 Urine Culture - Final Urine,Catheterized 08/08/18 22:46 Blood Culture Gram Stain - Preliminary Blood Blood Culture - Preliminary Beta Hemolytic Strep Group G 08/08/18 22:46 Blood Culture - Final Blood Assessment and Plan Plan: ASSESSMENT AND PLAN #1Urinary tract infection #2Leukocytosis #3Febrile illness #4Kidney disease unknown if chronic or acute ST patient has never been here to this hospital does not see a physician regularly. #5Mild troponin elevation of unclear etiology. Most likely related to acute infectious process as well as component of renal failure. Does not represent an acute coronary event as he has no symptoms of angina and there is no EKG evide nce to suggest an acute coronary syndrome. plan We will await the results of the echocardiogram with Doppler study, if that shows a normal left ventricular systolic function and we will follow this patient along with you on an as-needed basis only. DNP note has been reviewed, I agree with a documented findings and plan of care. Patient was seen and examined.
[2018-08-10] MEDS: VANCOMYCIN 1,250 MG in SODIUM CHLORIDE 0.9% 250 ML IVPB SCH (12:22)
[2018-08-10] MEDS: MULTIVITAMINS, THERA 1 EACH TAB PO SCH (12:22)
--- NOTE | 2018-08-10 14:04 | CDI ---
Documentation Clarification Form Date: 08/10/2018 1:52:15 PM From: Pepper York RN , CCDS Admit Date: 08/09/2018 12:37:00 AM Patient Name: Cuauhtemoc Chino Visit Number: [id number] Discharge Date: ATTENTION: The Clinical Documentation Specialists (CDI) and [facility] Coding Staff appreciate your assistance in clarifying documentation. Please respond to the clarification below the line at the bottom and electronically sign. The CDI & [facility] Coding staff will review the response and follow-up if needed. Please note: Queries are made part of the Legal Health Record. If you have any questions, please contact the author of this message via ITS. Dr. Severo Chance A pressure ulcer was documented in the Nursing Wound Assessment . History/Risk Factors: 87 year old male present to the ED with confusion and appearing disheveled. Clinical Indicators: Per H & P " Multiple areas of pressure changes in the skin" Please document the locations. bmi 19.5 Total protein 7.2, Albumin 3.9, Location: Right Ankle Wound description: Protruding lesion in the middle of the wound bright red. Treatment: Foam with Border Consults: Infectious Disease; Elements for accurate and compliant documentation of an ulcer: *The location/laterality of the ulcer *Etiology (decubitus/pressure, diabetic, PVD) *Stage I-IV, Unstageable, Suspected Deep Tissue Injury (To the deepest stage) *If the ulcer was present at admission (POA) or occurred after admission In your professional opinion, can you please clarify the diagnosis, location, laterality and whether present on admission (POA): * Unstageable Pressure Ulcer Right Ankle * Other condition, please specify * Unable to determine Please indicate etiology of pressure ulcer (if known). (Last Revision: January 2017) MTDD
--- NOTE | 2018-08-10 14:18 | CDI ---
Documentation Clarification Form Date: 08/10/2018 2:11:19 PM From: Pepper York RN, CCDS [phone] Admit Date: 08/09/2018 12:37:00 AM Patient Name: Cuauhtemoc Chino Visit Number: [id number] Discharge Date: ATTENTION: The Clinical Documentation Specialists (CDI) and [facility] Coding Staff appreciate your assistance in clarifying documentation. Please respond to the clarification below the line at the bottom and electronically sign. The CDI & [facility] Coding staff will review the response and follow-up if needed. Please note: Queries are made part of the Legal Health Record. If you have any questions, please contact the author of this message via ITS. Dr. Severo Chance A pressure ulcer was documented in the Nursing Wound Assessment. History/Risk Factors: 87 year old male presents to the ED with confusion and appearing disheveled . Unknown medical history poor historian. Clinical Indicators: per H & P Multiple areas of pressure changes in the skin Please document the locations. BMI 19.5 Location: Right Hip Wound description: Hyper pigmentation, thin Consults: Infectious Disease Elements for accurate and compliant documentation of an ulcer: *The location/laterality of the ulcer *Etiology (decubitus/pressure, diabetic, PVD) *Stage I-IV, Unstageable, Suspected Deep Tissue Injury (To the deepest stage) *If the ulcer was present at admission (POA) or occurred after admission In your professional opinion, can you please clarify the diagnosis, location, laterality and whether present on admission (POA): * Unstageable Right Hip Pressure ulcer * Other condition, please specify * Unable to determine Please indicate etiology of pressure ulcer (if known). (Last Revision: January 2017) MTDD
--- NOTE | 2018-08-10 14:41 | CDI ---
Documentation Clarification Form Date: 08/10/2018 From: Pepper York RN CCDS Admit Date: 08/09/2018 12:37:00 AM Patient Name: Cuauhtemoc Chino Visit Number: [id number] Discharge Date: ATTENTION: The Clinical Documentation Specialists (CDI) and [facility] Coding Staff appreciate your assistance in clarifying documentation. Please respond to the clarification below the line at the bottom and electronically sign. The CDI & [facility] Coding staff will review the response and follow-up if needed. Please note: Queries are made part of the Legal Health Record. If you have any questions, please contact the author of this message via ITS. Dr. Severo Chance A pressure ulcer was documented in the in the Nursing Wound Assessment. History/Risk Factors: 87 year old male present to the ED with confusion and appearing disheveled. Clinical Indicators: Per H & P Multiple areas of pressure changes in the skin Please document the locations Location: Right Shoulder Wound description: Stage one pressure ulcer Consults: Infectious Disease Elements for accurate and compliant documentation of an ulcer: *The location/laterality of the ulcer *Etiology (decubitus/pressure, diabetic, PVD) *Stage I-IV, Unstageable, Suspected Deep Tissue Injury (To the deepest stage) *If the ulcer was present at admission (POA) or occurred after admission In your professional opinion, can you please clarify the diagnosis, location, laterality and whether present on admission (POA): * Stage 1 Pressure/Decubitus Ulcer Right Shoulder (intact skin, non- blanching redness of local area) * Other condition, please specify * Unable to determine Please indicate etiology of pressure ulcer (if known). (Last Revision: January 2017) MTDD
--- NOTE | 2018-08-10 14:49 | CDI ---
Documentation Clarification Form Date: 08/10/2018 2:42:10 PM From: Pepper York RN CCDS Admit Date: 08/09/2018 12:37:00 AM Patient Name: Cuauhtemoc Chino Visit Number: [id number] Discharge Date: ATTENTION: The Clinical Documentation Specialists (CDI) and [facility] Coding Staff appreciate your assistance in clarifying documentation. Please respond to the clarification below the line at the bottom and electronically sign. The CDI & [facility] Coding staff will review the response and follow-up if needed. Please note: Queries are made part of the Legal Health Record. If you have any questions, please contact the author of this message via ITS. Dr. Severo Chance A pressure ulcer was documented in the Nursing Wound Assessment History/Risk Factors: 87 year old male presents to the ED with confusion and appearing disheveled. Clinical Indicators: Per H & P Multiple areas of pressure changes in the skin Please document the locations. BMI 19.5 Location: Buttock Wound description: Stage 2 Granulation Quality pink dry intact Treatment: Foam with Border Consults: Infectious Disease Elements for accurate and compliant documentation of an ulcer: *The location/laterality of the ulcer *Etiology (decubitus/pressure, diabetic, PVD) *Stage I-IV, Unstageable, Suspected Deep Tissue Injury (To the deepest stage) *If the ulcer was present at admission (POA) or occurred after admission In your professional opinion, can you please clarify the diagnosis, location, laterality and whether present on admission (POA): * Stage 2 Pressure/Decubitus Ulcer Left Buttock (Partial thickness, loss of dermis, pink wound bed) * Other condition, please specify * Unable to determine Please indicate etiology of pressure ulcer (if known). (Last Revision: January 2017) MTDD
--- NOTE | 2018-08-10 14:51 | XR ---
EXAMINATION TYPE: XR chest 1V DATE OF EXAM: 08/10/2018 CLINICAL HISTORY: Cough and pneumonia progress study. TECHNIQUE: Single AP portable upright view of the chest is obtained. COMPARISON: Chest x-ray from 2 days earlier. FINDINGS: There is chronic parenchymal change without suspicious new focal airspace opacity, pleural effusion, or pneumothorax seen bilaterally. There is persistent cardiomegaly with atherosclerotic an d ectatic thoracic aorta. Suspect some pericardial calcification along left heart border. Osseous str uctures are demineralized. Underlying dextroconvex scoliosis centered in the upper lumbar spine is ag ain seen. Tracheal deviation to right of midline is again seen. Correlate for possible thyroid goiter . IMPRESSION: Chronic changes and cardiomegaly without new suspicious acute pulmonary process.
--- NOTE | 2018-08-10 14:58 | CDI ---
Documentation Clarification Form Date: 08/10/2018 2:49:59 PM From: Pepper York RN CCDS Admit Date: 08/09/2018 12:37:00 AM Patient Name: Cuauhtemoc Chino Visit Number: [id number] Discharge Date: ATTENTION: The Clinical Documentation Specialists (CDI) and [facility] Coding Staff appreciate your assistance in clarifying documentation. Please respond to the clarification below the line at the bottom and electronically sign. The CDI & [facility] Coding staff will review the response and follow-up if needed. Please note: Queries are made part of the Legal Health Record. If you have any questions, please contact the author of this message via ITS. Dr. Severo Chance Altered Mental Status was documented in the H & P History/Risk Factors: 87 year old male presents to the ED with confusion and appearing disheveled. Clinical Indicators: Temp 101.2 poa Labs: Wbc 18.6; Bun 130; Cr 1.35 Blood Culture Beta hemolytic strep group G CT: Brain no acute process. Treatment: Vancomcyin ivpb 1L bolus 0.9ns ivfl, In your professional opinion, please clarify the etiology of the Altered Mental Status (specify cause): * Acute Metabolic Encephalopathy Possible due to UTI, Sepsis and Dehydration * Acute Encephalopathy ( specify type and underlying medical illness) * Other condition (please specify) * Unable to determine (Last Revision: July 2017) MTDD
--- NOTE | 2018-08-10 15:11 | CDI ---
Documentation Clarification Form Date: 08/10/2018 3:01:08 PM From: Pepper York Phone: [phone] Admit Date: 08/09/2018 12:37:00 AM Patient Name: Cuauhtemoc Chino Visit Number: [id number] Discharge Date: ATTENTION: The Clinical Documentation Specialists (CDI) and [facility] Coding Staff appreciate your assistance in clarifying documentation. Please respond to the clarification below the line at the bottom and electronically sign. The CDI & [facility] Coding staff will review the response and follow-up if needed. Please note: Queries are made part of the Legal Health Record. If you have any questions, please contact the author of this message via ITS. Dr. Severo Chance Malnutrition has been documented in H & P. History/Risk Factors: 87 year old male presents to the ED with Confusion and Appearing. Disheveled. Unknown medical history. Patient presents with unstable pressure ulcers. Clinical Indicators: BMI 19.5 Labs: Albumin 3.9, Total protein 7.2 Current BMI: 19.5 Treatment: Supplements: Ensure Lab monitoring: BMP and Hematology In your professional opinion, can you please clarify if these findings signify one of the following conditions? * Mild Protein-Calorie Malnutrition * Moderate Protein-Calorie Malnutrition * Severe Protein-Calorie Malnutrition * Malnutrition, unspecified * Malnutrition following GI surgery * Other condition, please specify * Unable to determine (Last Revision: July 2017) MTDD
--- NOTE | 2018-08-10 16:44 | PN ---
PROGRESS NOTE DATE OF SERVICE: 08/10/2018 REASON FOR FOLLOWUP: Group B strep group G strep bacteremia. INTERVAL HISTORY: The patient is currently afebrile. The patient is breathing comfortably. The patient denies having any chest pain or any cough. No abdominal pain. No nausea or vomiting or any diarrhea. PHYSICAL EXAMINATION: Blood pressure 143/85 with a pulse of 83, temperature of 98. He is 97% on room air. General description is an elderly male lying in bed in no distress. RESPIRATORY SYSTEM: Unlabored breathing. Decreased breath sounds at the bases. No wheeze. HEART: S1, S2. Regular rate and rhythm. ABDOMEN: Soft. No tenderness. Right lateral leg wound with very minimal swelling and redness; no drainage. LABS: Hemoglobin 14.4, white count 16.3, BUN of 23, creatinine 1.07. Blood culture with beta- hemolytic group G. DIAGNOSTIC IMPRESSION AND PLAN: Patient with group G bacteremia. Source is likely right lateral leg wound with secondary cellulitis. The patient's antibiotic at this time will be adjusted to cefazolin 2 grams q.8 hours. Vancomycin will be discontinued. Local wound care to the leg wound with Aquacel Silver dressing, to be changed q.48 hours. Continue with supportive care. MMODL / IJN: [id number] /
[2018-08-10] MEDS: ceFAZolin IN SWFI 2 GM/20 ML SYRINGE IVP SCH ×2 (17:23→23:40)
--- NOTE | 2018-08-10 17:44 | PN ---
PROGRESS NOTE CHIEF COMPLAINT: Fever, leukocytosis, mental status changes and dementia with dehydration. HISTORY OF PRESENT ILLNESS: This gentleman seems to be about the same. He is alert, but confused. His is in the room with him. PHYSICAL EXAM: Chest is clear. Cardiac exam is normal. Abdomen is soft. IMPRESSION: 1. Fever of unknown origin. 2. Leukocytosis. 3. Dementia. 4. Dehydration. 5. Malnutrition. PLAN: 1. Continue with IV fluids to rehydrate. 2. Start working on discharge plan. He will not be able to go home and live independently. MMODL / IJN: [id number] /
[2018-08-11] MEDS: SODIUM CHLORIDE 0.9% 1,000 ML IV SCH ×3 (04:38→16:55)
[2018-08-11 06:45] LABS: Calcium 8.9 mg/dL (8.4-10.2); Potassium 4.3 mmol/L (3.5-5.1)
--- NOTE | 2018-08-11 07:07 | ECHOF ---
Referral Reason:elevated trop MEASUREMENTS -------- HEIGHT: 175.3 cm WEIGHT: 59.9 kg BP: 153/75 RVIDd: 3.7 cm (< 3.3) IVSd: 1.3 cm (0.6 - 1.1) LVIDd: 3.8 cm (3.9 - 5.3) LVPWd: 1.3 cm (0.6 - 1.1) IVSs: 1.8 cm LVIDs: 3.0 cm LVPWs: 1.6 cm LA Diam: 3.4 cm (2.7 - 3.8) LAESV Index (A-L): 27.85 ml/m Ao Diam: 3.2 cm (2.0 - 3.7) AV Cusp: 2.0 cm (1.5 - 2.6) MV EXCURSION: 18.048 mm (> 18.000) MV EF SLOPE: 21 mm/s (70 - 150) EPSS: 0.9 cm MV E Goldy: 1.07 m/s MV DecT: 133 ms MV A Goldy: 1.24 m/s MV E/A Ratio: 0.86 AR PHT: 550 ms RAP: 5.00 mmHg RVSP: 35.32 mmHg FINDINGS -------- Sinus rhythm. This was a technically adequate study. The left ventricular size is normal. There is mild concentric left ventricular hypertrophy. Overa ll left ventricular systolic function is mildly impaired with, an EF between 45 - 50 %. Basal infer ior LV wall motion is hypokinetic. Basal inferoseptal LV wall motion is hypokinetic. The right ventricle is mildly enlarged. Normal LA size by volume 22+/-6 ml/m2. The right atrium is normal in size. There is mild aortic valve sclerosis. There is [id number] aortic regurgitation. The mitral valve leaflets are mildly thickened. Mild mitral annular calcification present. Mild m itral regurgitation is present. Mild tricuspid regurgitation present. There is mild pulmonary hypertension. The right ventricular systolic pressure, as measured by Doppler, is 35.32mmHg. The pulmonic valve was not well visualized. The aortic root size is normal. Normal inferior vena cava with normal inspiratory collapse consistent with estimated right atrial pre ssure of 5 mmHg. There is no pericardial effusion. CONCLUSIONS -------- 1. Sinus rhythm. 2. This was a technically adequate study. 3. The left ventricular size is normal. 4. There is mild concentric left ventricular hypertrophy. 5. Basal inferior LV wall motion is hypokinetic. 6. Basal inferoseptal LV wall motion is hypokinetic. 7. The right ventricle is mildly enlarged. 8. Normal LA size by volume 22+/-6 ml/m2. 9. The right atrium is normal in size. 10. There is mild aortic valve sclerosis. 11. There is xgyz-ye-glmaipzm aortic regurgitation. 12. The mitral valve leaflets are mildly thickened. 13. Mild mitral annular calcification present. 14. Mild mitral regurgitation is present. 15. Mild tricuspid regurgitation present. 16. There is mild pulmonary hypertension. 17. The right ventricular systolic pressure, as measured by Doppler, is 35.32mmHg. 18. The pulmonic valve was not well visualized. 19. The aortic root size is normal. 20. Normal inferior vena cava with normal inspiratory collapse consistent with estimated right atrial pressure of 5 mmHg. 21. There is no pericardial effusion. [employer]MING MACHINE SET UP MECHANIC: Cecilia Sandhu RDCS
[2018-08-11] MEDS: MULTIVITAMINS, THERA 1 EACH TAB PO SCH (08:21)
[2018-08-11] MEDS: FAMOTIDINE 20 MG TAB PO SCH (08:21)
[2018-08-11] MEDS: ceFAZolin IN SWFI 2 GM/20 ML SYRINGE IVP SCH ×2 (08:21→16:55)
[2018-08-11] MEDS ORDERED: LOPERAMIDE 2 MG CAP PO PRN (10:49)
[2018-08-11] MEDS: LISINOPRIL 10 MG TAB PO SCH (12:01)
--- NOTE | 2018-08-11 13:08 | PN ---
PROGRESS NOTE This is an 87-year-old gentleman who was admitted to hospital with sepsis. Currently on antibiotics, has gotten lots better. On this admission, he had an echocardiogram that showed wall motion abnormality with hypokinesis involving the inferior wall. He also had mild troponin elevation. Given the recent sepsis, the plan Is to treat him with optimal medical therapy with Lopressor 25 b.i.d., aspirin and Zestril. I am not starting him on any statins as his LDL cholesterol is less than 70. We will consider this in the outpatient setting. On exam, comfortable at rest. Heart rate is 70 beats per minute. Blood pressure is 160/92. Respiratory rate is 18. Chest exam reveals good air entry bilaterally. Heart exam reveals first and second heart sounds. No gallop. No murmur. Abdomen is soft. Examination of extremities did not reveal any edema. Peripheral pulses are felt. ASSESSMENT: 1. Sepsis, on IV antibiotics. 2. Uncontrolled hypertension. 3. Coronary artery disease. PLAN: Patient will be started on aspirin, metoprolol and lisinopril. Adjust the medications as needed. We will follow the patient on an as-needed basis. We will have outpatient follow up with me. MMODL / IJN: [id number] /
[2018-08-11 14:31] VITALS: BMI 19.8
--- NOTE | 2018-08-11 16:56 | PN ---
PROGRESS NOTE DATE OF SERVICE: 08/11/2018. REASON FOR FOLLOWUP: Group G strep bacteremia secondary to left leg wound with left leg cellulitis. INTERVAL HISTORY: The patient is currently afebrile. The patient has been breathing comfortably. Denies any chest pain or any cough. No abdominal pain. No pain to the right leg area. PHYSICAL EXAMINATION: Blood pressure is 169/92 with a pulse of 71. Temperature 97.7. He is 98% on room air. General description is an elderly male lying in bed in no distress. Respiratory system: Unlabored breathing, clear to auscultation anteriorly. Heart S1, S2. Regular rate and rhythm. ABDOMEN: Soft. No tenderness. Right leg is currently minimal redness, no drainage. LABS: BUN of 25, creatinine 1.05. Blood culture repeat has been negative. IMPRESSION/PLAN: The patient admitted to the hospital with fever. The patient did have a beta hemolytic group G strep bacteremia, source is right lower extremity wound with secondary cellulitis. Currently covered with cefazolin to continue local wound care and Aquacel silver dressing. Hopefully finish therapy with oral antibiotics. Continue supportive care. MMODL / IJN: [id number] /
[2018-08-11] MEDS: CEPHALEXIN 500 MG CAP PO SCH ×2 (17:30→19:39)
--- NOTE | 2018-08-11 19:36 | PN ---
PROGRESS NOTE CHIEF COMPLAINT: Dementia and delirium with dehydration, malnutrition. HISTORY OF PRESENT ILLNESS: This gentleman has been fairly stable. Blood pressures are fluctuating some. He seems to be alert and has no complaints of shortness of breath, abdominal pain, vomiting, etc. PHYSICAL EXAM: Chest is fairly clear. Cardiac exam is normal. The abdomen is flat and soft. Extremities are unchanged. IMPRESSION: 1. Mental status changes. 2. Dementia. 3. Dehydration. 4. Malnutrition. PLAN: Discharge planning is working on location for when he leaves the hospital and he may be going to [facility] for long-term care. MMODL / IJN: [id number] /
[2018-08-11] MEDS: METOPROLOL TARTRATE 25 MG TAB PO SCH (19:39)
[2018-08-12] MEDS ORDERED: ASPIRIN 81 MG PO SCH (09:00)
[2018-08-12] MEDS: METOPROLOL TARTRATE 25 MG TAB PO SCH (09:02)
[2018-08-12] MEDS: SODIUM CHLORIDE 0.9% 1,000 ML IV SCH ×2 (09:02→12:34)
[2018-08-12] MEDS: LISINOPRIL 10 MG TAB PO SCH (09:02)
[2018-08-12] MEDS: CEPHALEXIN 500 MG CAP PO SCH ×2 (09:02→12:36)
[2018-08-12] MEDS: MULTIVITAMINS, THERA 1 EACH TAB PO SCH (09:02)
[2018-08-12] MEDS: FAMOTIDINE 20 MG TAB PO SCH (09:02)
[2018-08-12 09:29] VITALS: BP 137/69; RESP 20
--- NOTE | 2018-08-12 12:07 | DS ---
DISCHARGE SUMMARY CHIEF COMPLAINT: Fever, leukocytosis, dementia, dehydration and malnutrition. HISTORY OF PRESENT ILLNESS AND PHYSICAL EXAM: Details of this man's history and physical can be found in the initial workup. LABORATORY STUDIES: While she was in a hospital she had laboratory studies, details of which can be found in the laboratory section of his chart. COURSE IN HOSPITAL: After admission, he was placed on bedrest, started on intravenous fluids and underwent a cardiac workup. Cardiology introduced medications and the patient remained fairly stable while he was in the hospital. He was continually disoriented, but awake and alert. It was clear that he could not be discharged to live by himself as he was. Arrangements were made for him to go to [facility] and he will be sent there on . FINAL DIAGNOSES: 1. Mental status changes. 2. Malnutrition. 3. Dehydration. 4. Dementia. 5. Fever of unknown origin. OPERATIONS: None. CONSULTATION: Cardiology. He is improved. MMJUANL / TRISTINN: [id number] /
[2018-08-12 13:06] VITALS: PULSE 68; TEMP 98
--- NOTE | 2018-08-12 17:49 | PN ---
PROGRESS NOTE DATE OF SERVICE: 08/12/2018. REASON FOR FOLLOW UP: Group G strep bacteremia and right leg wound cellulitis. INTERVAL HISTORY: The patient is currently afebrile. He is breathing comfortably. Denies any chest pain or cough. No abdominal pain or any pain to the right leg area. PHYSICAL EXAMINATION: Blood pressure is 137/69 with a pulse of 68, temperature 98. He is 96% on room air. General description is an elderly male lying in bed in no distress. Respiratory system: Unlabored breathing, clear to auscultation anteriorly. Heart S1, S2. Regular rate and rhythm. Abdomen soft. No tenderness. LABS: No new lab have been obtained today. Blood cultures repeat 08/09 has been negative. DIAGNOSTIC IMPRESSION AND PLAN: Patient with right lateral leg wound with secondary cellulitis with secondary bacteremia with group G strep. Patient is currently on oral Keflex in view of no IV access. Local wound care to continue with Aquacel Silver dressing. Continue supportive care. MMODL / IJN: [id number] /
[2018-08-12] MEDS ORDERED: CEPHALEXIN 500 MG CAP PO SCH (21:00)
--- NOTE | 2018-08-15 13:37 | MISC ---
MISCELLANOUS REPORT QUERY Other condition, stage II decubitus right ankle. Other condition, stage II decubitus right hip. Stage stage I decubitus right shoulder. Stage II left buttock. Acute encephalopathy related to dementia. Severe protein calorie malnutrition. MMODL / IJN: [id number] /
== END 2018-08-12 16:02 | DRG 947 ==
LOC: EC 21:43 → 3SCARD 08-09 00:37
PROVIDERS: ADMIT Family Medicine; ATTEND Family Medicine
DX: R41.82 Altered mental status, unspecified (principal); E43 Unspecified severe protein-calorie malnutrition; F05 Delirium due to known physiological condition; L03.115 Cellulitis of right lower limb; L03.116 Cellulitis of left lower limb; Z68.1 Body mass index [BMI] 19.9 or less, adult; D17.9 Benign lipomatous neoplasm, unspecified; E86.0 Dehydration; F03.90 Unspecified dementia, unspecified severity, without behavioral disturbance, psychotic disturbance, mood disturbance, and anxiety; H91.90 Unspecified hearing loss, unspecified ear; I10 Essential (primary) hypertension; I25.10 Atherosclerotic heart disease of native coronary artery without angina pectoris; I44.0 Atrioventricular block, first degree; K40.90 Unilateral inguinal hernia, without obstruction or gangrene, not specified as recurrent; L89.322 Pressure ulcer of left buttock, stage 2; L89.519 Pressure ulcer of right ankle, unspecified stage; L89.159 Pressure ulcer of sacral region, unspecified stage; L89.101 Pressure ulcer of unspecified part of back, stage 1; N19 Unspecified kidney failure; N43.3 Hydrocele, unspecified; W07.XXXA Fall from chair, initial encounter; Z87.11 Personal history of peptic ulcer disease; R74.8 Abnormal levels of other serum enzymes; B95.4 Other streptococcus as the cause of diseases classified elsewhere; R78.81 Bacteremia
CPT/HCPCS: 36415; 70450; 71045; 71046; 80048; 80053; 80061; 81001; 82550; 83605; 84484; 85025; 85610; 85730; 87040; 87077; 87086; 87186; 87324; 93005; 93306; 96365; 96366; 96368; 99285